=== PATIENT | male | born 1985 | race Asian ===

== ENCOUNTER → 2017-11-10 | Outpatient (CLI) | payer OTHER ==
--- NOTE | 2017-11-10 12:38 | Diagnostic Imaging Report ---
PROCEDURE:X-RAY MODIFIED BARIUM SWALLOW COMPARISON:None. INDICATIONS:Not provided. DISCUSSION:Fluoroscopic examination was performed in conjunction with speech pathology, during swallowing of a variety of thin and thick liquid consistencies. CONCLUSION:Flash penetration was noted upon administration of thin liquids. No tracheal aspiration was noted. Please see the report from speech pathology for complete details. Dictated by: Joseph Cerda M.D. on 11/10/2017 at 12:47 Electronically approved by: Joseph Cerda M.D. on 11/10/2017 at 12:47
== END ==
LOC: EDSEX 11:00 → DX 11:05
PROVIDERS: ATTEND Otolaryngology
DX: R13.13 Dysphagia, pharyngeal phase (principal)
CPT/HCPCS: 74230

== ENCOUNTER → 2017-11-19 | Outpatient (CLI) | payer OTHER ==
[~2017-11-19] MED LIST: IOPAMIDOL 370 MG/ML 200 ML INFUS..BTL INJ ONE; SODIUM CHLORIDE 0.9% 50ML 50 ML ONE
--- NOTE | 2017-11-23 09:38 | Diagnostic Imaging Report ---
EXAMINATION: CT of the neck with contrast HISTORY: Pharyngeal dysphagia , difficulty swallowing for the last week. COMPARISON: None TECHNIQUE: Multidetector helical axial images were obtained from the sternal notch through the skull base during intravenous infusion of iodinated contrast material. Images were reconstructed using soft tissue and bone algorithms and were viewed in multiplanar format. Intravenous contrast: 100 mL of Isovue-370. FINDINGS: Mass: None. Nodes: No lymphadenopathy. Sinuses: Imaged portions unremarkable. Oral cavity: Unremarkable. Salivary glands: Parotid and submandibular glands unremarkable. Pharynx: Mild prominence of the nasopharyngeal adenoid tissue and palatine tonsils, likely reactive and within normal limits for patient's age. Larynx: Unremarkable. Thyroid gland: Unremarkable. Upper esophagus: Unremarkable. Blood vessels: Unremarkable. Bones: Unremarkable. IMPRESSION: 1. Mild prominence of the nasopharyngeal adenoid tissue and palatine tonsils, which may be inflammatory or reactive as detail above. 2. Otherwise no neck mass or enlarged cervical lymphadenopathy. Signed by: Dr. Lynda Bar M.D. on 11/23/2017 9:35 AM
== END ==
LOC: CT 08:32
PROVIDERS: ATTEND Otolaryngology
DX: R13.13 Dysphagia, pharyngeal phase (principal)
CPT/HCPCS: 70491; Q9967